=== PATIENT | male | born 1960 | race Caucasian/White ===

== ENCOUNTER 2021-09-11 11:42 | Outpatient (CLI) | payer OTHER, SELFPAY | END 2021-09-11 23:59 | disposition short-term general hospital (02) | LOC: LABSPEC 11:43 | PROVIDERS: Visit Provider Physician Assistant Surgical | DX: Z11.52 Encounter for screening for COVID-19 (principal) | CPT/HCPCS: 87635; U0003; U0005 ==

== ENCOUNTER 2021-09-12 11:21 | Outpatient (CLI) | payer OTHER, SELFPAY | END 2021-09-12 23:59 | disposition short-term general hospital (02) | LOC: LABSPEC 11:22 | PROVIDERS: Referring Provider Physician Assistant; Visit Provider Physician Assistant | DX: Z11.52 Encounter for screening for COVID-19 (principal) | CPT/HCPCS: 87635; U0003; U0005 ==